=== PATIENT | female | born 2000 | race Caucasian/White ===

== ENCOUNTER 2018-08-07 13:20 | Emergency (ER) | payer MEDICAID ==
[2018-08-07] MEDS ORDERED: ONDANSETRON DISINTEGRATING 4 MG TAB PO ONE (13:27)
[2018-08-07] MEDS ORDERED: ONDANSETRON 4 MG/2 ML VIAL ONE (14:20)
[2018-08-07] MEDS ORDERED: ONDANSETRON 4 MG/2 ML VIAL IVP ONE (14:23)
[2018-08-07] MEDS ORDERED: NS 1,000 ML IV ONE (14:27)
[2018-08-07] MEDS ORDERED: KETOROLAC 30 MG/1 ML SDV IVP ONE (14:27)
[2018-08-07] MEDS ORDERED: HALOPERIDOL LACT 5 MG/ML INJ IVP ONE (14:28)
[2018-08-07] MEDS ORDERED: KETOROLAC 15 MG/1 ML SDV ONE (14:28)
[2018-08-07] MEDS ORDERED: HALOPERIDOL LACT 5 MG/ML INJ ONE (14:28)
--- NOTE | 2018-08-07 14:30 | EDPHY ---
H & P Stated Complaint: n/v/d upper abd pain Time Seen by Provider: 08/07/18 14:20 HPI/ROS: CHIEF COMPLAINT: Abdominal cramping, vomiting and diarrhea HISTORY OF PRESENT ILLNESS: The patient is a 18-year-old female who comes to the emergency department complaining of nausea, vomiting diarrhea and abdominal cramping. She has history of irritable bowel disease. She states that she has these symptoms somewhat frequently however today significantly worse than usual. She states that her pain is stabbing and cramping. No fever. No blood in her vomit. Her pain is primarily epigastric. No chest pain or shortness of breath. She tried taking Zofran at home but threw it up. Severity: Severe Modifying factors: None REVIEW OF SYSTEMS: Constitutional: denies: chills, fever, recent illness, recent injury EENTM: denies: blurred vision, double vision, nose congestion Respiratory: denies: cough, shortness of breath Cardiac: denies: chest pain, irregular heart rate, lightheadedness, palpitations Gastrointestinal/Abdominal: denies: abdominal pain, diarrhea, nausea, vomiting, blood streaked stools Genitourinary: See HPI Musculoskeletal: denies: joint pain, muscle pain Skin: denies: lesions, rash, jaundice, bruising Neurological: denies: headache, numbness, paresthesia, tingling, dizziness, weakness Hematologic/Lymphatic: denies: blood clots, easy bleeding, easy bruising Immunologic/allergic: denies: HIV/AIDS, transplant 10 systems reviewed and negative except as noted EXAM: GENERAL: Moderate distress, vomiting gastric fluid. HEAD: Atraumatic, normocephalic. EYES: Pupils equal round and reactive to light, extraocular movements intact, sclera anicteric, conjunctiva are normal. ENT: TMs normal, nares patent, oropharynx clear without exudates. Moist mucous membranes. NECK: Normal range of motion, supple without lymphadenopathy or JVD. LUNGS: Breath sounds clear to auscultation bilaterally and equal. No wheezes rales or rhonchi. HEART: Regular rate and rhythm without murmurs, rubs or gallops. ABDOMEN: Soft, nontender, normoactive bowel sounds. No guarding, no rebound. No masses appreciated. BACK: No CVA tenderness, no spinal tenderness, step-offs or deformities EXTREMITIES: Normal range of motion, no pitting or edema. No clubbing or cyanosis. NEUROLOGICAL: Cranial nerves II through XII grossly intact. Normal speech, normal gait. 5/5 strength, normal movement in all extremities, normal sensation , normal reflexes PSYCH: Normal mood, normal affect. SKIN: Warm, dry, normal turgor, no visible rashes or lesions. Source: Patient Exam Limitations: No limitations - Personal History LMP (Females 10-55): Irregular Current Tetanus Diphtheria and Acellular Pertussis (TDAP): No - Medical/Surgical History Hx Asthma: No Hx Chronic Respiratory Disease: No Hx Diabetes: No Hx Cardiac Disease: No Hx Renal Disease: No Hx Cirrhosis: No Hx Alcoholism: No Hx HIV/AIDS: No Hx Splenectomy or Spleen Trauma: No Other PMH: ? ibs - Family History Significant Family History: No pertinent family hx - Social History Smoking Status: Never smoked Alcohol Use: Sober Drug Use: None Constitutional: Initial Vital Signs Temperature (C) 36.3 C 08/07/18 13:25 Heart Rate 65 08/07/18 13:25 Respiratory Rate 18 08/07/18 13:25 Blood Pressure 116/91 H 08/07/18 13:25 O2 Sat (%) 99 08/07/18 13:25 O2 Delivery Mode Room Air Allergies/Adverse Reactions: No Known Allergies Allergy (Verified 08/07/18 13:23) Home Medications: Medication Instructions Recorded Carafate 1 GM (*) 08/07/18 Ketorolac Tromethamine 10 mg PO Q6H PRN #10 tab 08/07/18 LaMICtal 08/07/18 Magnesium 08/07/18 Metoclopramide [Reglan 10 mg tab 10 mg PO BID PRN 7 Days tab 08/07/18 (RX)] Prilosec 08/07/18 Zofran 08/07/18 Medical Decision Making - Diagnostics Imaging: Discussed imaging studies w/ postage machine operator Radiologist ED Course/Re-evaluation: 3:00 p.m. the patient's ultrasound looks good at the bedside. Waiting for official report. Lab work thus far is reassuring. The patient states she feels completely better after Toradol and Haldol. She is asking to go home. She has not yet provided a urine sample. Will prepare her chart for discharge if her ultrasound and urinalysis are negative. Her abdominal exam remains benign. 3:15 p.m. I did receive a call from Radiology stating the ultrasound is normal. The patient is happy with this. Differential Diagnosis: Partial list of the Differential diagnosis considered include but were not limited to; gastritis, irritable bowel syndrome, peptic ulcer disease, biliary disease and although unlikely based on the history and physical exam, I also considered pancreatitis, , urinary tract infection, kidney stone, appendicitis. I discussed these differential diagnoses and the plan with the patient as well as the usual and expected course. The patient understands that the diagnosis is provisional and that in medicine we are not always correct and that further workup is often warranted. Usual and customary warnings were given. All of the patient's questions were answered. The patient was instructed to return to the emergency department should the symptoms at all worsen or return, otherwise to followup with the physician as we discussed. - Data Points Laboratory Results: Laboratory Results 08/07/18 14:25 08/07/18 14:25 Medications Given: Discontinued Medications Haloperidol Lactate (Haldol Injection) 2.5 mg IVP EDNOW ONE Stop: 08/07/18 14:29 Last Admin: 08/07/18 14:30 Dose: 2.5 mg Sodium Chloride (Ns) 1,000 mls @ 0 mls/hr IV EDNOW ONE; Wide Open PRN Reason: Protocol Stop: 08/07/18 14:28 Last Admin: 08/07/18 14:31 Dose: 1,000 mls Ketorolac Tromethamine (Toradol) 15 mg IVP EDNOW ONE Stop: 08/07/18 14:28 Last Admin: 08/07/18 14:30 Dose: 15 mg Ondansetron HCl (Zofran Odt) 4 mg PO EDNOW ONE Stop: 08/07/18 13:28 Last Admin: 08/07/18 13:30 Dose: 4 mg Ondansetron HCl (Zofran) 4 mg IVP EDNOW ONE Stop: 08/07/18 14:24 Last Admin: 08/07/18 14:25 Dose: 4 mg Departure - Departure Disposition: Home, Routine, Self-Care Clinical Impression: Epigastric abdominal pain Condition: Fair Instructions: Epigastric Pain (ED) Referrals: NONE *PRIMARY CARE P,. [Primary Care Provider] - As per Instructions Ernesto Peace MD, FACG [Medical Doctor] - 5-7 days, call for appt. Prescriptions: Ketorolac Tromethamine 10 mg PO Q6H PRN #10 tab PRN Reason: Pain/inflammation Metoclopramide [Reglan 10 mg tab (RX)] 10 mg PO BID PRN 7 Days tab PRN Reason: *Nausea & Vomiting
[2018-08-07 14:38] LABS: PLATELET COUNT 249 10^3/uL (150-400)
[2018-08-07 15:47] VITALS: BP 114/72
== END 2018-08-07 15:47 | disposition home or self-care (01) ==
DX: R10.13 Epigastric pain (principal); R11.2 Nausea with vomiting, unspecified; R19.7 Diarrhea, unspecified; Z87.19 Personal history of other diseases of the digestive system
CPT/HCPCS: 96374; J1630; J1885; J2405